=== PATIENT | female | born 1945 | race Caucasian/White ===

== ENCOUNTER 2016-11-10 09:41 | Outpatient (CLI) | payer MEDICARE, OTHER ==
--- NOTE | 2016-11-11 16:48 | Mammography Report ---
DIGITAL BILATERAL SCREENING MAMMOGRAM: 11/10/2016 HISTORY: A 71-year-old female, prior benign right breast biopsy. COMPARISON: 09/2015, 09/2014, 02/2013, 09/2011, 09/2010, 09/2009. TECHNIQUE: Routine CC and MLO projections were obtained of the breasts. FINDINGS: Scattered fibroglandular tissue is present within the breasts. There are no dominant addie s, suspicious microcalcifications, or secondary signs of malignancy. In comparison to the previous st udies, there are no significant changes. Postbiopsy changes are stable in the right breast. ASSESSMENT: NO MAMMOGRAPHIC EVIDENCE OF MALIGNANCY. NO SIGNIFICANT INTERVAL CHANGES. RECOMMENDATION: Screening mammography is recommended annually. BI-RADS category 2 - benign. STANDARD QUALIFYING STATEMENTS 1. This examination was reviewed with the aid of Computed-Aided Detection (CAD). 2. A negative or benign imaging report should not delay biopsy if clinically suspicious findings are present. Consider surgical consultation if warranted. More than 5% of cancers are not identified by i maging. 3. Dense breasts may obscure an underlying neoplasm. JOB #: [id number] EXT JOB #:[id number]
== END 2016-11-10 09:42 | disposition home or self-care (01) ==
LOC: DI 09:41
PROVIDERS: ATTEND Physician Assistant
DX: Z12.31 Encounter for screening mammogram for malignant neoplasm of breast (principal)
CPT/HCPCS: 77067

== ENCOUNTER 2017-11-22 11:02 | Outpatient (CLI) | payer MEDICARE, OTHER ==
--- NOTE | 2017-11-23 15:23 | Mammography Report ---
DIGITAL SCREENING MAMMOGRAM: 11/22/2017 CLINICAL INDICATION: A 72-year-old with history of benign right breast biopsy for screening. COMPARISON: 10/2016, 09/2015, 09/2014, 02/2013, 09/2011, 09/2010, 09/2009. TECHNIQUE: Routine CC and MLO projections were obtained of the breasts. FINDINGS: The breasts demonstrate scattered fibroglandular densities bilaterally. Biopsy changes in the right upper inner posterior breast are stable. A few punctate, typically benign calcifications are present. No suspicious masses, clustered microcalcifications, or regions of architectural distortion are identified. IMPRESSION: BENIGN FINDINGS. RECOMMENDATION: Routine annual screening unless otherwise clinically indicated. BIRADS CATEGORY 2 - BENIGN FINDINGS. STANDARD QUALIFYING STATEMENTS: 1. This examination was reviewed with the aid of Computer-Aided Detection (CAD). 2. A negative or benign imaging report should not delay biopsy if clinically suspicious findings are present. Consider surgical consultation if warranted. More than 5% of cancers are not identified by imaging. 3. Dense breasts may obscure an underlying neoplasm. TD: 11/23/2017 15:23
== END 2017-11-22 11:03 | disposition home or self-care (01) ==
LOC: DI 11:02
PROVIDERS: ATTEND Registered Nurse
DX: Z12.31 Encounter for screening mammogram for malignant neoplasm of breast (principal)
CPT/HCPCS: 77067

== ENCOUNTER 2018-01-27 11:09 | Outpatient (CLI) | payer MEDICARE, OTHER ==
--- NOTE | 2018-01-27 14:09 | XRAY Report ---
THREE VIEW BILATERAL FEET: 01/27/2018 CLINICAL INDICATION: Increasing pain. FINDINGS: AP, lateral, oblique views of the bilateral feet demonstrate mild osteoarthritic changes bilaterally. There is no evidence of acute fracture or dislocation. No radiopaque foreign body is seen in the soft tissues. IMPRESSION: MILD OSTEOARTHRITIS. TD: 01/27/2018 13:53
== END 2018-01-27 11:10 | disposition home or self-care (01) ==
LOC: DI 11:09
PROVIDERS: ATTEND Registered Nurse
DX: M79.672 Pain in left foot (principal); G60.0 Hereditary motor and sensory neuropathy; M19.072 Primary osteoarthritis, left ankle and foot; M19.071 Primary osteoarthritis, right ankle and foot

== ENCOUNTER 2018-11-30 15:02 | Outpatient (CLI) | payer MEDICARE, OTHER ==
--- NOTE | 2018-11-30 17:01 | Mammography Report ---
Reason: SCREENING MAMMO Procedure Date: 11/30/2018 Accession Number: [id number] / [id number] Procedure: PADDY - Screening Mammo w/Sebas CPT Code: FULL RESULT: EXAM: Screening Mammo w/Sebas DATE: 11/30/2018 3:57 PM CLINICAL HISTORY: Routine screening. No reported personal or family history of breast cancer. Prior history of benign excisional biopsy right breast. TECHNIQUE: (B) - Bilateral Bilateral CC and MLO views were obtained. COMPARISON: 11/22/2017 through 10/19/2014 PARENCHYMAL PATTERN: (A) - The breasts demonstrate scattered fibroglandular densities bilaterally. FINDINGS: Bilateral breasts: There are no suspicious masses, calcifications, or areas of distortion. Stable excisional biopsy changes from the medial right breast. IMPRESSION: Benign findings. BI-RADS category 2 RECOMMENDATION: (ANNUAL) - Recommend routine annual screening mammography. BI-RADS CATEGORY: (2) - Benign Findings STANDARD QUALIFYING STATEMENTS: 1. This examination was not reviewed with the aid of Computer-Aided Detection (CAD). 2. A negative or benign imaging report should not preclude biopsy if clinically suspicious findings are present. 3. Dense breasts may obscure an underlying neoplasm. 4. This examination was reviewed with the aid of 3D breast imaging (tomosynthesis).
== END 2018-11-30 15:03 | disposition home or self-care (01) ==
LOC: DI 15:02
DX: Z12.31 Encounter for screening mammogram for malignant neoplasm of breast (principal)
CPT/HCPCS: 77063; 77067

== ENCOUNTER 2018-11-30 15:03 | Outpatient (CLI) | payer MEDICARE, OTHER ==
--- NOTE | 2018-11-30 17:09 | DEXA Report ---
Reason: AGE RELATED OSTEOPOROSIS WITHOUT CURRENT PATHOLOGI Procedure Date: 11/30/2018 Accession Number: [id number] / [id number] Procedure: DEX - Dexa Spine and/or Hip CPT Code: FULL RESULT: EXAM: Dexa Spine and/or Hip DATE: 11/30/2018 3:37 PM CLINICAL HISTORY: AGE RELATED OSTEOPOROSIS WITHOUT CURRENT PATHOLOGY TECHNIQUE: Dual energy x-ray absorptiometry (DXA) was performed on a Crystalplex System. Regions measured are the AP Spine, femoral neck, and if needed forearm. COMPARISON: None. In accordance with the International Society for Clinical Densitometry (ISCD) guidelines, data from previous exams may be reanalyzed using current recommendations and techniques. This is done to allow a more accurate basis for comparison with the current study. FINDINGS: The data for the lumbar spine is as follows: BMD (g/cm/cm) T-SCORE Z-SCORE REGION L1 0.713 -3.5 -1.7 L2 0.743 -3.8 -2.0 L3 0.871 -2.7 -1.0 L4 0.942 -2.1 -0.4 TOTAL 0.826 -2.9 -1.2 NOTE: All evaluable vertebrae are used for classification The data for the hip is as follows: BMD (g/cm/cm) T-SCORE Z-SCORE REGION Neck 0.671 -2.6 -0.7 TOTAL 0.679 -2.6 -0.9 NOTE: The femoral neck or total proximal femur, whichever is lowest, is used for classification. IMPRESSION: THE WHO CLASSIFICATION BASED ON THE INTERNATIONAL REFERENCE STANDARD IS OSTEOPOROSIS. THE FRACTURE RISK IS HIGH. RECOMMENDATION: Patients with diagnosis of osteoporosis or osteopenia should have regular bone mineral density assessment. For those eligible for Medicare, routine testing is allowed once every 2 years. Testing frequency can be increased for patients who have rapidly progressing disease or for those who are receiving medical therapy to restore bone mass. COMMENT: World Health Organization (WHO) definitions for osteoporosis and osteopenia: NORMAL BMD: T-score at -1.0 or higher, fracture risk is low OSTEOPENIA BMD: T-score between -1.0 and -2.5, fracture risk is increased. OSTEOPOROSIS BMD: T-score at -2.5 or lower, fracture risk is high. National Osteoporosis Foundation recommends: 1. Obtain adequate dietary calcium (at least 1200 mg per day) and vitamin D (400-800 international units per day). 2. Participate, as appropriate, in regular weightbearing and muscle-strengthening exercise. 3. Avoid tobacco use and reduce alcohol and caffeine intake. 4. For more detailed information see the website at www.NOF.org.
== END 2018-11-30 15:04 | disposition home or self-care (01) ==
LOC: DI 15:03
PROVIDERS: ATTEND Nurse Practitioner Family
DX: M81.0 Age-related osteoporosis without current pathological fracture (principal)
CPT/HCPCS: 77080

== ENCOUNTER 2018-12-24 16:06 | Outpatient (CLI) | payer MEDICARE, OTHER ==
--- NOTE | 2018-12-25 16:01 | Ultrasound Report ---
Reason: LOCALIZED SWELLING,MASS AND LUMP,RIGHT LOWER LIMB Procedure Date: 12/24/2018 Accession Number: [id number] / [id number] Procedure: US - Ext Limited Non Vascular CPT Code: FULL RESULT: EXAM: RIGHT LOWER EXTREMITY ULTRASOUND - LIMITED EXAM DATE: 12/24/2018 04:20 PM. CLINICAL HISTORY: Localized swelling, mass lump in the lower leg. COMPARISON: FOOT 3 VIEW BILAT 01/27/2018 11:54 AM. TECHNIQUE: Real-time scanning was performed with static images obtained. FINDINGS: No focal soft tissue mass identified. No collections or adenopathy. In the region of clinical concern in the medial and posterior right leg, the subcutaneous soft tissues are thickened and relatively hypoechoic compared to the adjacent subcutaneous fat. No definite focal mass noted in the region of concern. No hyperemia is noted. IMPRESSION: 1. No focal mass, collection or adenopathy noted in the area of clinical concern. 2. Soft tissue parenchyma in the region of clinical concern appears hypoechoic relative to the adjacent subcutaneous fat. Potentially, this could be due to soft tissue edema. Generalized edema is noted in the region. No hyperemia present. If symptoms persist or become painful, recommend MRI with and without contrast. RADIA
== END 2018-12-24 16:07 | disposition home or self-care (01) ==
LOC: DI 16:06
PROVIDERS: ATTEND Registered Nurse
DX: R22.41 Localized swelling, mass and lump, right lower limb (principal)
CPT/HCPCS: 76882

== ENCOUNTER 2019-02-03 15:21 | Outpatient (CLI) | payer MEDICARE, OTHER ==
--- NOTE | 2019-02-06 20:39 | Ultrasound Report ---
Reason: LOCALIZED SWELLING,MASS AND LUMP,RIGHT LOWER LIMB Procedure Date: 02/03/2019 Accession Number: [id number] / [id number] Procedure: US - Duplex Ext Veins Right CPT Code: FULL RESULT: EXAM: RIGHT LOWER EXTREMITY VENOUS ULTRASOUND EXAM DATE: 02/03/2019 04:20 PM. CLINICAL HISTORY: LOCALIZED SWELLING,MASS AND LUMP,RIGHT LOWER LIMB. COMPARISON: None. TECHNIQUE: Real-time sonographic vascular imaging was performed by the hazardous materials handler through the lower extremity utilizing both color-flow and Doppler spectral analysis. Multiple denial management representative static images were saved for review. FINDINGS: Common Femoral Vein (CFV): Normal. CFV-GSV Junction: Normal. Profunda Femoral Vein (PFV): Normal. Femoral Vein (FV) Prox: Normal. Femoral Vein (FV) Mid: Normal. Femoral Vein (FV) Dist: Normal. Popliteal Vein: Normal. Posterior Tibial Veins: Normal. Peroneal Veins: Normal. Other: No sonographic evidence of soft tissue mass. IMPRESSION: No evidence for deep venous thrombosis. RADIA
== END 2019-02-03 15:22 | disposition home or self-care (01) ==
LOC: DI 15:21
PROVIDERS: ATTEND Registered Nurse
DX: R22.41 Localized swelling, mass and lump, right lower limb (principal); I83.91 Asymptomatic varicose veins of right lower extremity

== ENCOUNTER 2020-03-04 10:34 | Outpatient (CLI) | payer MEDICARE, OTHER ==
--- NOTE | 2020-03-05 11:49 | Mammography Report ---
BILATERAL DIGITAL SCREENING MAMMOGRAM 3D/2D: 03/04/2020 CLINICAL: Routine screening. Comparison is made to exams dated: 11/30/2018 mammogram, 11/22/2017 mammogram, and 11/10/2016 mammogram - [facility]. There are scattered fibroglandular elements in both breasts. There is an oval low density focal asymmetry with an indistinct and circumscribed margin in the right breast at 12 o'clock middle depth. There is an oval low density focal asymmetry with an indistinct and circumscribed margin in the left breast at 2 o'clock posterior depth. No other significant masses or calcifications are seen in either breast. IMPRESSION: INCOMPLETE: NEEDS ADDITIONAL IMAGING EVALUATION The oval low density focal asymmetry in the right breast at 12 o'clock middle depth is indeterminate. Mediolateral and spot compression views as well as additional views with possible ultrasound are re commended. The oval low density focal asymmetry in the left breast at 2 o'clock posterior depth is indeterminate . Mediolateral and spot compression views as well as additional views with possible ultrasound are r ecommended. This exam was interpreted at Station ID: [id number]. NOTE: For mammograms, a report in lay terms will be sent to the patient. Approximately 15% of breast malignancies will not be visualized mammographically. In the management of a palpable breast mass, a negative mammogram must not discourage biopsy of a clinically suspicious lesion. Electronically Signed By: Sahil Haji M.D. ddashely/penchris:03/04/2020 14:13:02 ACR BI-RADS Category 0: Incomplete 3340F PARENCHYMAL PATTERN: (A) - The breast(s) demonstrate(s) scattered fibroglandular densities. BI-RADS CATEGORY: (0) - 0 Mammo and [place] [id number] Immediate follow-up LATERALITY: (B)
== END 2020-03-04 10:35 | disposition home or self-care (01) ==
LOC: DI 10:34
DX: Z12.31 Encounter for screening mammogram for malignant neoplasm of breast (principal)
CPT/HCPCS: 77063; 77067

== ENCOUNTER 2020-04-02 10:20 | Outpatient (CLI) | payer MEDICARE, OTHER ==
--- NOTE | 2020-04-03 10:59 | Mammography Report ---
BILATERAL DIGITAL DIAGNOSTIC MAMMOGRAM 3D/2D: 04/02/2020 CLINICAL: Patient returns today to evaluate asymmetries in bilateral breasts. Comparison is made to exams dated: 03/04/2020 mammogram, 11/30/2018 mammogram, 11/22/2017 mammogram, and 11/10/2016 mammogram - [facility]. There are scattered fibroglandular elements in b oth breasts. There are stable surgical clips in the right breast. There is a 3 mm oval low density focal asymmetry with a circumscribed margin in the left breast at 2 o'clock middle depth. This is seen in additional views. No other significant masses, calcifications, or other findings are seen in either breast. IMPRESSION: INCOMPLETE: NEEDS ADDITIONAL IMAGING EVALUATION The 3 mm oval low density focal asymmetry in the left breast is indeterminate. An ultrasound is odilon mmended. There is no abnormality seen in the right breast to correspond with the mammography finding at 12 o'c lock in the middle depth which likely represents normal fibroglandular tissue. This exam was interpreted at Station ID: [id number]. NOTE: For mammograms, a report in lay terms will be sent to the patient. Approximately 15% of breast malignancies will not be visualized mammographically. In the management of a palpable breast mass, a negative mammogram must not discourage biopsy of a clinically suspicious lesion. Electronically Signed By: Ramakrishna hyatt/mily:04/02/2020 15:34:45 ACR BI-RADS Category 0: Incomplete 3340F PARENCHYMAL PATTERN: (A) - The breast(s) demonstrate(s) scattered fibroglandular densities. BI-RADS CATEGORY: (0) - 0 Ultrasound [id number] Immediate follow-up LATERALITY: (L)
--- NOTE | 2020-04-03 10:59 | Ultrasound Report ---
LIMITED ULTRASOUND OF LEFT BREAST: 04/02/2020 CLINICAL: Patient returns for additional imaging over a suspected mass in the left breast. Comparison is made to exams dated: 04/02/2020 mammogram and 03/04/2020 mammogram - [facility]. Color flow ultrasound of the left breast 3 o'clock region was performed. Guerra scale images of the r eal-time examination were reviewed. There is a benign 0.3 cm x 0.4 cm x 0.2 cm oval cyst with a smooth internal wall in the left breast a t 3 o'clock middle depth 6 cm from the nipple. This correlates with mammography findings. IMPRESSION: BENIGN There is no sonographic evidence of malignancy. The 0.3 cm x 0.4 cm x 0.2 cm oval cyst in the left breast is benign. A 1 year screening mammogram is recommended. This exam was interpreted at Station ID: [id number]. Electronically Signed By: Ramakrishna hyatt/mily:04/02/2020 15:36:55 Ultrasound BI-RADS: 2 Benign BI-RADS CATEGORY: (2) - 2 RECOMMENDATION: (ANNUAL) - Recommend routine annual screening mammography. [id number] 1 year screening LATERALITY: (B)
== END 2020-04-02 10:21 | disposition home or self-care (01) ==
LOC: DI 10:20
PROVIDERS: ATTEND Registered Nurse
DX: N60.02 Solitary cyst of left breast (principal)
CPT/HCPCS: 76642; 77066

== ENCOUNTER 2020-05-10 20:07 | Outpatient (CLI) | payer MEDICARE, OTHER | END 2020-05-10 20:08 | disposition critical access hospital (66) | LOC: EMS 20:07 | PROVIDERS: ATTEND Surgery | DX: M25.552 Pain in left hip (principal) | CPT/HCPCS: A0425; A0429 ==

== ENCOUNTER 2020-05-10 20:32 | Emergency (ER) | payer MEDICARE, OTHER ==
[2020-05-10] MEDS ORDERED: MORPHINE 2 MG/ML CARPUJECT IVP STA (20:36)
[2020-05-10] MEDS ORDERED: ONDANSETRON 4 MG/2 ML VIAL IVP STA (20:36)
--- NOTE | 2020-05-10 20:37 | ED Physician Documentation ---
PD HPI LOWER EXT INJURY - Stated complaint Stated Complaint: GLF/ HIP PAIN - History obtained from History obtained from: Patient, EMS - Additional information Additional information: 74-year-old woman with history of peripheral neuropathy and Kyjcxfj-Vlnvl-Vqcjf disease presents after a slip and fall directly onto the left hip on concrete. Complains of severe hip pain but was able to transfer with assistance. No other injuries. No medications on route. Review of Systems Ten Systems: 10 systems reviewed and negative Constitutional: reports: Reviewed and negative Throat: reports: Reviewed and negative Cardiac: reports: Reviewed and negative Respiratory: reports: Reviewed and negative PD PAST MEDICAL HISTORY - Allergies Allergies/Adverse Reactions: Allergies Allergy/AdvReac Type Severity Reaction Status Date / Time legumes Allergy Anaphylaxis Verified 05/10/20 20:46 PD ED PE NORMAL - Vitals Vital signs reviewed: Yes - General General: Alert and oriented X 3, No acute distress - HEENT HEENT: PERRL, EOMI - Neck Neck: Supple, no meningeal sign, No bony TTP - Cardiac Cardiac: RRR, No murmur - Respiratory Respiratory: No respiratory distress, Clear bilaterally - Abdomen Abdomen: Non tender - Back Back: No CVA TTP, No spinal TTP - Derm Derm: Normal color, Warm and dry - Extremities Extremities: Other (Mild TTP Lateral hip but internal and external rotation are painless. No shortening or rotation.) - Neuro Neuro: Alert and oriented X 3, Normal speech Results - Vitals Vitals: Vital Signs - 24 hr 05/10/20 20:41 Temperature 37.3 C Heart Rate 87 Respiratory 16 Rate Blood Pressure 164/105 H O2 Saturation 98 Oxygen O2 Source Room air - Labs Labs: Laboratory Tests 05/10/20 05/10/20 05/10/20 20:58 20:58 20:58 WBC 10.4 RBC 4.25 Hgb 13.2 Hct 38.8 MCV 91.3 MCH 31.1 H MCHC 34.0 RDW 12.4 Plt Count 265 MPV 9.4 Neut # (Auto) 8.6 H Lymph # (Auto) 1.1 L [place] # (Auto) 0.7 Eos # (Auto) 0.0 Baso # (Auto) 0.1 Absolute Nucleated RBC 0.00 Nucleated RBC % 0.0 PT 12.9 H INR 1.2 Sodium 135 Potassium 3.2 L Chloride 98 L Carbon Dioxide 27 Anion Gap 10.0 BUN 16 Creatinine 0.6 Estimated GFR (MDRD) 97 Glucose 127 H Calcium 9.4 Total Bilirubin 1.1 H AST 24 ALT 20 Alkaline Phosphatase 93 Total Protein 7.5 Albumin 4.3 Globulin 3.2 Albumin/Globulin Ratio 1.3 Lipase 39 Ethyl Alcohol < 5.0 - Rads (name of study) L hip XR Radiology: Prelim report reviewed (by REAL yeison, Dr Ever Escobar), EMP read contemporaneously (no frx) PD MEDICAL DECISION MAKING - ED course ED course: 74 year-old woman with a fall and a hip injury. Clinically it is not fractured, she has relatively good range of motion and painless internal and external rotation. X-ray to my eye showed no fracture and subsequently she "passed a road test" with a walker. She had some pain getting up but then was ambulatory without too much of an issue. Departure - Departure Disposition: 01 Home, Self Care Clinical Impression: Contusion of left hip Qualifiers: Encounter type: initial encounter Qualified Code(s): S70.02XA - Contusion of left hip, initial encounter Condition: Good Record reviewed to determine appropriate education?: Yes
[2020-05-10 21:10] LABS: BASOPHILS # (AUTO) 0.1 10^3/uL (0.0-0.1); BASOPHILS % (AUTO) 0.8 %; EOSINOPHILS % (AUTO) 0.3 %; HGB - HEMOGLOBIN 13.2 g/dL (12.0-16.0); LYMPHOCYTES # (AUTO) 1.1 10^3/uL (1.5-3.5); LYMPHOCYTES % (AUTO) 10.1 %; MEAN CORPUSCULAR HEMOGLOBIN 31.1 pg (27.0-31.0); MEAN CORPUSCULAR VOLUME 91.3 fL (81.0-99.0); MEAN PLATELET VOLUME 9.4 fL (7.9-10.8); MONOCYTES # (AUTO) 0.7 10^3/uL (0.0-1.0); MONOCYTES % (AUTO) 6.2 %; NEUTROPHILS # (AUTO) 8.6 10^3/uL (1.5-6.6); NEUTROPHILS % (AUTO) 82.3 %; PLT - PLATELET COUNT 265 10^3/uL (130-450); RED BLOOD COUNT 4.25 10^6/uL (4.20-5.40); RED CELL DISTRIBUTION WIDTH 12.4 % (12.0-15.0); WHITE BLOOD COUNT 10.4 x10^3/uL (4.8-10.8)
[2020-05-10 21:13] LABS: INR 1.2 (0.8-1.2); PT - PROTHROMBIN TIME 12.9 secs (9.9-12.6)
[2020-05-10 21:22] LABS: ALBUMIN 4.3 g/dL (3.2-5.5); ALBUMIN/GLOBULIN RATIO 1.3 (1.0-2.2); ALKALINE PHOSPHATASE 93 IU/L (42-121); ALT ALANINE AMINOTRANSFERASE 20 IU/L (10-60); AST ASPARTATE AMINOTRANSFERASE 24 IU/L (10-42); BILIRUBIN,TOTAL 1.1 mg/dL (0.2-1.0); BUN - BLOOD UREA NITROGEN 16 mg/dL (6-20); CALCIUM 9.4 mg/dL (8.5-10.3); CARBON DIOXIDE - CO2 27 mmol/L (21-32); CHLORIDE 98 mmol/L (101-111); CREATININE 0.6 mg/dL (0.4-1.0); GLUCOSE 127 mg/dL (70-100); LIPASE 39 U/L (22-51); SODIUM 135 mmol/L (135-145); TOTAL PROTEIN 7.5 g/dL (6.7-8.2)
[2020-05-10] MEDS ORDERED: oxyCODONE/ACET 5/325 Prepack 4 PO STA (22:20)
[2020-05-10] MEDS ORDERED: ONDANSETRON ODT 4 MG Prepack 2 TL STA (22:20)
--- NOTE | 2020-05-11 00:09 | ED Physician Documentation ---
History of Present Illness - Stated complaint Stated Complaint: GLF/ HIP PAIN - Chief complaint Chief Complaint: Ext Problem - History obtained from History obtained from: Patient - Additonal information Additional information: This patient was originally seen by Dr. Rodrigues and discharged. After the patient was discharged she reports she is unable to walk and complaining of severe nausea, vomiting after taking her percocet. denies hitting her head or any head injury. please see separate note from dr. sandhu for further details. Review of Systems Constitutional: reports: Reviewed and negative Eyes: reports: Reviewed and negative Ears: reports: Reviewed and negative Nose: reports: Reviewed and negative Throat: reports: Reviewed and negative Cardiac: reports: Reviewed and negative Respiratory: reports: Reviewed and negative GI: reports: Nausea, Vomiting, Reviewed and negative : reports: Reviewed and negative Skin: reports: Reviewed and negative Musculoskeletal: reports: Other (left hip pain) Neurologic: reports: Reviewed and negative Psychiatric: reports: Reviewed and negative Endocrine: reports: Reviewed and negative Immunocompromised: reports: Reviewed and negative PD PAST MEDICAL HISTORY - Present Medications Home Medications: Ambulatory Orders Medication Instructions Recorded Confirmed Aspirin 81 mg PO DAILY 05/11/20 05/11/20 Lisinopril [Prinivil] 10 mg PO DAILY 05/11/20 05/11/20 Pravastatin [Pravachol] 10 mg PO DAILY 05/11/20 05/11/20 hydroCHLOROthiazide 50 mg PO DAILY 05/11/20 05/11/20 [Hydrochlorothiazide] - Allergies Allergies/Adverse Reactions: Allergies Allergy/AdvReac Type Severity Reaction Status Date / Time legumes Allergy Anaphylaxis Verified 05/10/20 20:46 PD ED PE NORMAL - Vitals Vital signs reviewed: Yes - General General: Alert and oriented X 3, Other (actively vomiting on my initial evaluation) - HEENT HEENT: PERRL - Neck Neck: Supple, no meningeal sign - Cardiac Cardiac: RRR, No murmur - Respiratory Respiratory: Clear bilaterally - Abdomen Abdomen: Normal bowel sounds, Soft, Non tender, Non distended - Derm Derm: Warm and dry - Extremities Extremities: No deformity, Other (ttp over left greater trochanter, but able to internally and externally rotate, no leg length discrepancy, nv intact, compartments soft, able to flex the hip to 90 degrees.) - Neuro Neuro: Alert and oriented X 3 - Psych Psych: Normal mood, Normal affect Results - Vitals Vitals: Vital Signs - 24 hr 05/10/20 05/10/20 05/11/20 20:41 22:57 01:10 Temperature 37.3 C 36.4 C L Heart Rate 87 73 75 Respiratory 16 18 20 Rate Blood Pressure 164/105 H 164/89 H 172/76 H O2 Saturation 98 98 99 05/11/20 05/11/20 05/11/20 01:52 02:47 02:53 Temperature Heart Rate 75 81 85 Respiratory 18 18 16 Rate Blood Pressure 115/54 L 151/80 H 151/80 H O2 Saturation 100 99 100 05/11/20 05/11/20 03:21 03:35 Temperature 36.4 C L 36.4 C L Heart Rate 77 81 Respiratory 17 16 Rate Blood Pressure 156/88 H 141/72 H O2 Saturation 97 97 Oxygen O2 Source Room air - Labs Labs: Laboratory Tests 05/10/20 05/10/20 05/10/20 20:58 20:58 20:58 WBC 10.4 RBC 4.25 Hgb 13.2 Hct 38.8 MCV 91.3 MCH 31.1 H MCHC 34.0 RDW 12.4 Plt Count 265 MPV 9.4 Neut # (Auto) 8.6 H Lymph # (Auto) 1.1 L [place] # (Auto) 0.7 Eos # (Auto) 0.0 Baso # (Auto) 0.1 Absolute Nucleated RBC 0.00 Nucleated RBC % 0.0 PT 12.9 H INR 1.2 Sodium 135 Potassium 3.2 L Chloride 98 L Carbon Dioxide 27 Anion Gap 10.0 BUN 16 Creatinine 0.6 Estimated GFR (MDRD) 97 Glucose 127 H Calcium 9.4 Total Bilirubin 1.1 H AST 24 ALT 20 Alkaline Phosphatase 93 Total Protein 7.5 Albumin 4.3 Globulin 3.2 Albumin/Globulin Ratio 1.3 Lipase 39 Ethyl Alcohol < 5.0 PD MEDICAL DECISION MAKING - ED course Complexity details: reviewed old records, reviewed results, re-evaluated patient, d/w patient, d/w family ED course: 74-year-old female fell on her left hip had a negative x-ray of her left hip and pelvis, have been treated with oral Percocet and discharged and she began to become 6 severely nauseated and started actively vomiting then complaining of severe left hip pain again. CT scan without contrast was ordered that shows no acute fracture it does show L4-L5 spinal stenosis but no acute fracture. She is complained of severe pain she was treated with her dose of Dilaudid which did improve her pain continued with nausea and vomiting was also given a IN intramuscular dose of Phenergan she was observed for several hours prior to discharge she is able to tolerate a p.o. challenge able to stand on her own and ambulate with a steady gait patient will be discharged home with her . Departure - Departure Disposition: 01 Home, Self Care Clinical Impression: Contusion of left hip Qualifiers: Encounter type: initial encounter Qualified Code(s): S70.02XA - Contusion of left hip, initial encounter Nausea and vomiting Qualifiers: Vomiting type: unspecified Vomiting Intractability: unspecified Qualified Code(s): R11.2 - Nausea with vomiting, unspecified Condition: Stable Instructions: Hip Precautions Follow-Up: Pooja Becker ARNP [Primary Care Provider] - 05/11/20 Comments: please call your primary care provider today. Return to the emergency department with any concerns to include worsening pain, fevers or any concerns.
[2020-05-11] MEDS ORDERED: HYDROmorphone 0.5 MG/0.5 ML SYRINGE IM STA (00:10)
[2020-05-11] MEDS ORDERED: methocarbamoL 500 MG TABLET PO STA (00:10)
[2020-05-11] MEDS ORDERED: PROMETHAZINE 25 MG/1 ML VIAL IM STA (02:43)
[2020-05-11 03:59] VITALS: BP 141/74
--- NOTE | 2020-05-11 07:56 | CT Report ---
PROCEDURE: PELVIS WO INDICATIONS: left hip pain TECHNIQUE: Noncontrast 3 mm axial sections acquired through the bony pelvis, with coronal and sagittal reformatt ing. For radiation dose reduction, the following was used: automated exposure control, adjustment of mA and/or kV according to patient size. COMPARISON: X-ray pelvis and left hip dated 05/10/2020. FINDINGS: Image quality: Excellent. Bones: No acute fracture or dislocation of the pelvis or left hip. Lower lumbar facet arthropathy. Soft tissues: Large amount of fecal debris in the cecum. IMPRESSION: No acute fracture or dislocation of the pelvis and left hip. A preliminary report with the above findings was provided at the time of the study by [facility]. Reviewed by: Pelon Gottlieb MD on 05/11/2020 6:54 AM AZUL Approved by: Pelon Gottlieb MD on 05/11/2020 6:54 AM AZUL Station ID: [id number]
--- NOTE | 2020-05-11 09:31 | XRAY Report ---
PROCEDURE: Hip w/Pelvis 2-3V LT INDICATIONS: hip inj TECHNIQUE: AP pelvis with lateral view(s) of the left hip(s). COMPARISON: CT pelvis 05/11/2020 FINDINGS: Bones: No fractures or dislocations. Pelvic ring appears intact. No suspicious bony lesions. Soft tissues: The visualized bowel gas pattern is normal. No suspicious soft tissue calcifications. IMPRESSION: No visualized acute fracture or dislocation. However, occult injury cannot be excluded. Recommend short interval imaging follow-up in 7-10 days as clinically indicated for additional evalua tion. The above findings are concordant with preliminary report. Reviewed by: Liz Pulido MD on 05/11/2020 9:29 AM PDT Approved by: Liz Pulido MD on 05/11/2020 9:29 AM PDT Station ID: [id number]
== END 2020-05-11 04:08 | disposition home or self-care (01) ==
LOC: EDUNIT# → ED 20:32
DX: S70.02XA Contusion of left hip, initial encounter (principal); W18.09XA Striking against other object with subsequent fall, initial encounter; Y93.89 Activity, other specified
CPT/HCPCS: 36415; 72192; 73502; 80053; 83690; 85025; 85610; 96372; 96374; 99284; 99285; A9270; J1170; 80320

== ENCOUNTER 2021-06-24 14:15 | Outpatient (CLI) | payer MEDICARE, OTHER ==
--- NOTE | 2021-07-09 08:31 | Mammography Report ---
BILATERAL DIGITAL SCREENING MAMMOGRAM 3D/2D WITH EXAGGERATED CC: 06/24/2021 CLINICAL: Routine screening. Comparison is made to exams dated: 04/02/2020 mammogram, 04/02/2020 mammogram, and 03/04/2020 mammogram - [facility]. There are scattered fibroglandular elements in both breasts. There are benign post operative findings in the right breast. No significant masses, calcifications, or other findings are seen in either breast. There has been no significant interval change. IMPRESSION: BENIGN There is no mammographic evidence of malignancy. A 1 year screening mammogram is recommended. This exam was interpreted at Station ID: [id number]. NOTE: For mammograms, a report in lay terms will be sent to the patient. Approximately 15% of breast malignancies will not be visualized mammographically. In the management of a palpable breast mass, a negative mammogram must not discourage biopsy of a clinically suspicious lesion. Electronically Signed By: Sahil Haji M.D. ddp/penrad:07/08/2021 08:14:45 ACR BI-RADS Category 2: Benign Finding(s) 3342F PARENCHYMAL PATTERN: (A) - The breast(s) demonstrate(s) scattered fibroglandular densities. BI-RADS CATEGORY: (2) - 2 RECOMMENDATION: (ANNUAL) - Recommend routine annual screening mammography. [id number] 1 year screening LATERALITY: (B)
== END 2021-06-24 14:16 | disposition home or self-care (01) ==
LOC: DI.S 14:15
DX: Z12.31 Encounter for screening mammogram for malignant neoplasm of breast (principal)

== ENCOUNTER 2021-07-17 15:15 | Outpatient (CLI) | payer MEDICARE, OTHER ==
--- NOTE | 2021-07-17 16:21 | DEXA Report ---
PROCEDURE: Dexa Spine and/or Hip INDICATIONS: OSTEOPORSIS TECHNIQUE: Dual energy x-ray absorptiometry (DXA) was performed on a [email or web address] System. Regions measur ed are the AP Spine, femoral neck, and if needed forearm. COMPARISON: DEXA 11/30/2018 FINDINGS: Lumbar Spine: Bone Mineral Density 0.94 g/cm/cm,T score -2.0, compared to -2.9 Left Hip: Bone Mineral Density 0.626 g/cm/cm,T score -3, compared to -2.6 Left Femoral Neck: Bone Mineral Density 0.6 g/cm/cm, T score -3.1 compared to -2.6, (T score greater or equal to -1.0: NORMAL) (T score from -1.1 to -2.4: OSTEOPENIA) (T score less than or equal to -2.5 to: OSTEOPOROSIS) Impression: Osteoporosis within the left hip and femoral neck progressive compared to prior exam. Mil d increased bone mineral density within the lumbar spine. Patients with diagnosis of osteoporosis or osteopenia should have regular bone mineral density assess ment. For those eligible for Medicare, routine testing is allowed once every 2 years. Testing frequ ency can be increased for patients who have rapidly progressing disease or for those who are receivin g medical therapy to restore bone mass. Reviewed by: Liz Pulido MD on 07/17/2021 4:20 PM PST Approved by: Liz Pulido MD on 07/17/2021 4:20 PM PST Station ID: [id number]
== END 2021-07-17 15:16 | disposition home or self-care (01) ==
LOC: DI 15:15
PROVIDERS: ATTEND Registered Nurse
DX: M81.0 Age-related osteoporosis without current pathological fracture (principal)

== ENCOUNTER 2021-10-20 14:38 | Outpatient (CLI) | payer MEDICARE, OTHER ==
--- NOTE | 2021-10-20 16:05 | Ultrasound Report ---
PROCEDURE: Carotid Doppler Complete INDICATIONS: ATHEROSCLEROSIS OF LEFT CAROTID ARTERY TECHNIQUE: Color and pulse Doppler interrogation was performed of both carotid systems, with image documentation and velocity measurements. COMPARISON: None. FINDINGS: Right side: Brachial blood pressure: 168/80 mm Hg. Common carotid artery peak systolic velocity: 57 cm/sec. Internal carotid artery peak systolic velocity: 144 cm/sec. Internal carotid artery end diastolic velocity: 37 cm/sec. External carotid artery peak systolic velocity: 69 cm/sec. ICA/CCA peak systolic ratio: 2.52 . Guerra scale imaging description: Mild atherosclerotic plaque Percent internal carotid artery stenosis: 50-69% . Vertebral artery: Flow direction is antegrade. Left side: Brachial blood pressure: 143/75 mm Hg. Common carotid artery peak systolic velocity: 50 cm/sec. Internal carotid artery peak systolic velocity: 110 cm/sec. Internal carotid artery end diastolic velocity: 36 cm/sec. External carotid artery peak systolic velocity: 65 cm/sec. ICA/CCA peak systolic ratio: 2.20 . Guerra scale imaging description: Mild atherosclerotic plaque. Percent internal carotid artery stenosis: 50-69% . Vertebral artery: Flow direction is antegrade. IMPRESSION: 50-69% percent stenosis of the internal carotid arteries bilaterally, slightly worse on the right. The estimate of stenosis included in the report of the imaging study was calculated using the NASCET method Reviewed by: Ramakrishna Cohn MD on 10/20/2021 4:04 PM PST Approved by: Ramakrishna Cohn MD on 10/20/2021 4:04 PM PST Station ID: [id number]
== END 2021-10-20 14:39 | disposition home or self-care (01) ==
LOC: DI 14:38
PROVIDERS: ATTEND Registered Nurse
DX: I65.23 Occlusion and stenosis of bilateral carotid arteries (principal)
CPT/HCPCS: 93880

== ENCOUNTER 2022-06-15 09:39 | Outpatient (CLI) | payer MEDICARE, OTHER ==
--- NOTE | 2022-06-16 10:32 | Mammography Report ---
BILATERAL DIGITAL SCREENING MAMMOGRAM 3D/2D: 06/15/2022 CLINICAL: Routine screening. Comparison is made to exams dated: 06/24/2021 mammogram, 04/02/2020 mammogram, 04/02/2020 mammogram, 03/04 mammogram, and 11/30/2018 mammogram - [facility]. There are scattered areas of fibroglandular density in both breasts (category b / 25%-50% glandular t issue). There are benign post operative findings in the right breast. There is a focal asymmetry in the right breast at 12 o'clock middle depth. No other significant masses, calcifications, or other findings are seen in either breast. IMPRESSION: INCOMPLETE: NEEDS ADDITIONAL IMAGING EVALUATION The focal asymmetry in the right breast is indeterminate. Additional views with possible ultrasound are recommended. Based on the Tyrer Cuzick model (a risk assessment model) the patients lifetime risk is 3.0% and her 10 year risk is 0.0%. According to the ACR, ACS, and NCCN guidelines, an annual breast MRI exam yumiko g with mammogram is recommended if the patients lifetime risk is 20% or greater. This exam was interpreted at Station ID: [id number]. NOTE: For mammograms, a report in lay terms will be sent to the patient. Approximately 15% of breast malignancies will not be visualized mammographically. In the management of a palpable breast mass, a negative mammogram must not discourage biopsy of a clinically suspicious lesion. Electronically Signed By: Patt Solo M.D. lk/:06/15/2022 15:34:05 ACR BI-RADS Category 0: Incomplete 3340F PARENCHYMAL PATTERN: (A) - The breast(s) demonstrate(s) scattered fibroglandular densities. BI-RADS CATEGORY: (0) - 0 Mammo and [place] [id number] Immediate follow-up LATERALITY: (B)
== END 2022-06-15 09:40 | disposition home or self-care (01) ==
LOC: DI 09:39
DX: Z12.31 Encounter for screening mammogram for malignant neoplasm of breast (principal); R92.8 Other abnormal and inconclusive findings on diagnostic imaging of breast

== ENCOUNTER 2022-06-25 09:55 | Outpatient (CLI) | payer MEDICARE, OTHER ==
--- NOTE | 2022-06-26 11:18 | Ultrasound Report ---
LIMITED ULTRASOUND OF RIGHT BREAST: 06/25/2022 CLINICAL: Patient returns today to evaluate a focal asymmetry in the right breast. Comparison is made to exams dated: 06/25/2022 mammogram, 06/15/2022 mammogram, 06/24/2021 mammogram, 04/02/2020 mammogram, 03/04/2020 mammogram, and 11/30/2018 mammogram - [facility]. Color flow ultrasound of the right breast 11 o'clock region was performed. Guerra scale images of the real-time examination were reviewed. There is a 0.5 cm x 0.5 cm x 0.5 cm oval mass with a circumscribed margin in the right breast at 11 o 'clock middle depth 4 cm from the nipple. This oval mass is hypoechoic with fatty hilum. Color flow imaging demonstrates that there is no vascularity present. IMPRESSION: PROBABLY BENIGN The 0.5 cm x 0.5 cm x 0.5 cm oval mass in the right breast is consistent with a complicated cyst or a lymph node and is probably benign. A follow-up right ultrasound in 6 months is recommended to demonstrate stability. This exam was interpreted at Station ID: [id number]. Electronically Signed By: Ramakrishna hyatt/mily:06/26/2022 07:58:02 Ultrasound BI-RADS: 3 Probably benign BI-RADS CATEGORY: (3) - 3 Ultrasound [id number] 6 month follow-up LATERALITY: (R)
--- NOTE | 2022-06-26 11:18 | Mammography Report ---
UNILATERAL RIGHT DIGITAL DIAGNOSTIC MAMMOGRAM 3D/2D: 06/25/2022 CLINICAL: Patient returns today to evaluate a focal asymmetry in the right breast. Comparison is made to exams dated: 06/15/2022 mammogram, 06/24/2021 mammogram, 04/02/2020 mammogram, mammogram, 03/04/2020 mammogram, and 11/30/2018 mammogram - [facility]. There are scattered areas of fibroglandular density in the right breast (category b / 25%-50% glandul ar tissue). There are benign post operative findings in the right breast. There is an oval focal asymmetry with an obscured margin in the right breast at 12 o'clock anterior d epth. This is seen in additional views. This is less prominent. No other significant masses or calcifications are seen in the breast. IMPRESSION: INCOMPLETE: NEEDS ADDITIONAL IMAGING EVALUATION The oval focal asymmetry in the right breast is indeterminate. An ultrasound is recommended. Based on the Tyrer Cuzick model (a risk assessment model) the patients lifetime risk is 3.0% and her 10 year risk is 0.0%. According to the ACR, ACS, and NCCN guidelines, an annual breast MRI exam yumiko g with mammogram is recommended if the patients lifetime risk is 20% or greater. This exam was interpreted at Station ID: [id number]. NOTE: For mammograms, a report in lay terms will be sent to the patient. Approximately 15% of breast malignancies will not be visualized mammographically. In the management of a palpable breast mass, a negative mammogram must not discourage biopsy of a clinically suspicious lesion. Electronically Signed By: Ramakrishna hyatt/mily:06/26/2022 07:56:37 ACR BI-RADS Category 0: Incomplete 3340F PARENCHYMAL PATTERN: (A) - The breast(s) demonstrate(s) scattered fibroglandular densities. BI-RADS CATEGORY: (0) - 0 Ultrasound [id number] Immediate follow-up LATERALITY: (R)
== END 2022-06-25 09:56 | disposition home or self-care (01) ==
LOC: DI 09:55
PROVIDERS: ATTEND Registered Nurse
DX: N63.11 Unspecified lump in the right breast, upper outer quadrant (principal)

== ENCOUNTER 2022-12-01 11:23 | Outpatient (CLI) | payer MEDICARE, OTHER ==
--- NOTE | 2022-12-01 15:26 | Ultrasound Report ---
LIMITED ULTRASOUND OF RIGHT BREAST: 12/01/2022 CLINICAL: Patient returns for a 6 month follow up of the right breast. No prior exams were available for comparison. Color flow ultrasound of the right breast 11 o'clock region was performed on the areas of interest. Guerra scale images of the real-time examination were reviewed. There are multiple stable benign appearing lymph nodes in the right breast middle depth. These lymph nodes are hypoechoic with fatty hilum. IMPRESSION: BENIGN There is no sonographic evidence of malignancy. The multiple stable intramammary lymph nodes in the right breast are benign. A 1 year screening mammogram is recommended. This exam was interpreted at Station ID: [id number]. Electronically Signed By: Patt Solo M.D. lk/:12/01/2022 12:04:37 Ultrasound BI-RADS: 2 Benign BI-RADS CATEGORY: (2) - 2 Mammogram [id number] 1 year screening LATERALITY: (B)
== END 2022-12-01 11:24 | disposition home or self-care (01) ==
LOC: DI 11:23
PROVIDERS: ATTEND Registered Nurse
DX: R92.8 Other abnormal and inconclusive findings on diagnostic imaging of breast (principal)

== ENCOUNTER 2023-01-06 08:08 | Outpatient (CLI) | payer MEDICARE, OTHER ==
--- NOTE | 2023-01-06 09:47 | DEXA Report ---
PROCEDURE: Dexa Spine and/or Hip INDICATIONS: OSTEOPOROSIS TECHNIQUE: Dual energy x-ray absorptiometry (DXA) was performed on a [employer] System. Regions measur ed are the AP Spine, femoral neck, and if needed forearm. COMPARISON: 07/17/2021 FINDINGS: Lumbar Spine: Bone Mineral Density 1.004 g/cm/cm,T score -1.6. There is interval 0.5% increase in total lumbar spi ne bone mineral density. Left Femoral Neck: Bone Mineral Density 0.609 g/cm/cm, T score -3.1. Left Hip: Bone Mineral Density 0.635 g/cm/cm,T score -3.0. There is interval 1.4% increase in left hip bone min eral density. (T score greater or equal to -1.0: NORMAL) (T score from -1.1 to -2.4: OSTEOPENIA) (T score less than or equal to -2.5 to: OSTEOPOROSIS) Impression: By WHO criteria, this patient has osteoporosis. Patients with diagnosis of osteoporosis or osteopenia should have regular bone mineral density assess ment. For those eligible for Medicare, routine testing is allowed once every 2 years. Testing frequ ency can be increased for patients who have rapidly progressing disease or for those who are receivin g medical therapy to restore bone mass. Reviewed by: Carlos Gaona MD on 01/06/2023 9:45 AM PDT Approved by: Carlos Gaona MD on 01/06/2023 9:45 AM PDT Station ID: [id number]
== END 2023-01-06 08:09 | disposition home or self-care (01) ==
LOC: DI 08:08
PROVIDERS: ATTEND Registered Nurse
DX: M81.0 Age-related osteoporosis without current pathological fracture (principal)

== ENCOUNTER 2023-06-30 09:56 | Outpatient (CLI) | payer MEDICARE, OTHER ==
--- NOTE | 2023-07-01 16:06 | Mammography Report ---
BILATERAL DIGITAL SCREENING MAMMOGRAM 3D/2D: 06/30/2023 CLINICAL: Routine screening. Comparison is made to exams dated: 06/25/2022 mammogram, 06/15/2022 mammogram, 06/24/2021 mammogram, 04/02/2020 mammogram, 04/02/2020 mammogram, and 03/04/2020 mammogram - . There are scattered areas of fibroglandular density in both breasts (category b / 25%-50% glandular t issue). There are benign post operative findings in the right breast. No significant masses, calcifications, or other findings are seen in either breast. IMPRESSION: BENIGN There is no mammographic evidence of malignancy. A 1 year screening mammogram is recommended. Based on the Tyrer Cuzick model (a risk assessment model) the patients lifetime risk is 2.7% and her 10 year risk is 0.0%. According to the ACR, ACS, and NCCN guidelines, an annual breast MRI exam yumiko g with mammogram is recommended if the patients lifetime risk is 20% or greater. This exam was interpreted at Station ID: Unknown. NOTE: For mammograms, a report in lay terms will be sent to the patient. Approximately 15% of breast malignancies will not be visualized mammographically. In the management of a palpable breast mass, a negative mammogram must not discourage biopsy of a clinically suspicious lesion. Electronically Signed By: Venus Roca M.D., PH.D eb/:07/01/2023 15:50:45 Entry: - 07/01/2023 15:50:45 letter sent: No_Letter ACR BI-RADS Category 2: Benign Finding(s) 3342F PARENCHYMAL PATTERN: (A) - The breast(s) demonstrate(s) scattered fibroglandular densities. BI-RADS CATEGORY: (2) - 2 Mammogram [id number] 1 year screening LATERALITY: (B)
== END 2023-06-30 09:57 | disposition home or self-care (01) ==
LOC: DI 09:56
DX: Z12.31 Encounter for screening mammogram for malignant neoplasm of breast (principal); R92.323 Mammographic fibroglandular density, bilateral breasts

== ENCOUNTER 2023-08-12 08:57 | Outpatient (CLI) | payer MEDICARE, OTHER ==
--- NOTE | 2023-08-12 16:52 | Ultrasound Report ---
PROCEDURE: Carotid Doppler Complete INDICATIONS: BILATERAL STENOSIS TECHNIQUE: Color and pulse Doppler interrogation was performed of both carotid systems, with image documentation and velocity measurements. COMPARISON: Carotid ultrasound October 20, 2021. FINDINGS: Right side: Brachial blood pressure: 135 mm Hg. Common carotid artery peak systolic velocity: 60 cm/sec. Internal carotid artery peak systolic velocity: 86 cm/sec. Internal carotid artery end diastolic velocity: 24 cm/sec. External carotid artery peak systolic velocity: 63 cm/sec. ICA/CCA peak systolic ratio: 1.43, previously 2.52. Guerra scale imaging description: Mild atherosclerotic plaque. Percent internal carotid artery stenosis: No hemodynamically significant stenosis. Vertebral artery: Flow direction is antegrade. Left side: Brachial blood pressure: 143 mm Hg. Common carotid artery peak systolic velocity: 57 cm/sec. Internal carotid artery peak systolic velocity: 93 cm/sec. Internal carotid artery end diastolic velocity: 28 cm/sec. External carotid artery peak systolic velocity: 56 cm/sec. ICA/CCA peak systolic ratio: 1.63, previously 2.2. Guerra scale imaging description: Mild atherosclerotic plaque. Percent internal carotid artery stenosis: Less than 50 percent stenosis. Vertebral artery: Flow direction is antegrade. IMPRESSION: 1. In the right internal carotid artery, there is less than 50 % stenosis based on peak systolic [place] criteria, previously 50-69%. 2. In the left internal carotid artery, there is less than 50 % stenosis based on peak systolic veloc ity criteria, previously 50-69%. 3. Antegrade blood flow within the right vertebral artery. 4. Antegrade blood flow within the left vertebral artery. The estimate of stenosis included in the report of the imaging study was calculated using the [facility]-end orsed standards of carotid artery stenosis. Reviewed by: Alexa Alvarez MD on 08/12/2023 4:51 PM PST Approved by: Alexa Alvarez MD on 08/12/2023 4:51 PM PST Station ID: [id number]
== END 2023-08-12 08:58 | disposition home or self-care (01) ==
LOC: DI 08:57
PROVIDERS: ATTEND Registered Nurse
DX: I65.23 Occlusion and stenosis of bilateral carotid arteries (principal)
CPT/HCPCS: 93880